=== PATIENT | female | born 1955 | race Caucasian/White ===

== ENCOUNTER 2023-03-21 13:49 | Outpatient (CLI) | payer MEDICARE, SELFPAY | END 2023-03-21 13:50 | disposition home or self-care (01) | LOC: NFLDREF 03-24 12:20 | PROVIDERS: Visit Provider Nurse Practitioner Family | DX: R30.0 Dysuria (principal) | CPT/HCPCS: 87086 ==

== ENCOUNTER 2024-06-25 12:05 | Outpatient (CLI) | payer MEDICARE, SELFPAY | END 2024-06-25 12:06 | disposition home or self-care (01) | LOC: NFLDREF 07-05 00:02 | PROVIDERS: Visit Provider Nurse Practitioner Family | DX: N89.8 Other specified noninflammatory disorders of vagina (principal); N39.0 Urinary tract infection, site not specified; N76.0 Acute vaginitis; N30.01 Acute cystitis with hematuria | CPT/HCPCS: 87086 ==